=== PATIENT | male | born 1985 | race Caucasian/White ===

== ENCOUNTER → 2017-01-16 | Outpatient (CLI) | payer OTHER ==
[~2017-01-16] MED LIST: CEPHALEXIN500 M1 PO; NORCO 325 MG-51 TAB PO
== END ==
LOC: COL.RAD 15:06
DX: S09.90XA Unspecified injury of head, initial encounter (principal); H53.8 Other visual disturbances

== ENCOUNTER 2018-11-12 10:48 | Emergency (ER) | payer OTHER, BC ==
[~2018-11-12] VITALS: Ht 175.3 cm; Wt 100.0 kg
[2018-11-12 10:49] VITALS: TEMP 97.2
[2018-11-12 12:44] VITALS: BP 130/95; PULSE 78
== END 2018-11-12 12:44 | disposition home or self-care (01) ==
LOC: COL.ER 10:48
DX: S16.1XXA Strain of muscle, fascia and tendon at neck level, initial encounter (principal); V43.62XA Car passenger injured in collision with other type car in traffic accident, initial encounter

== ENCOUNTER 2018-12-17 13:19 | Outpatient (RCR) | payer OTHER | END 2018-12-18 08:47 | LOC: WSOH 13:19 | DX: Z02.89 Encounter for other administrative examinations (principal) ==